=== PATIENT | female | born 1975 | race Caucasian/White ===

== ENCOUNTER 2018-05-19 07:05 | Day surgery (SDC) | payer OTHER | END 2018-05-19 11:45 | disposition home or self-care (01) | LOC: AMB-ENDOS 07:05 | DX: K64.8 Other hemorrhoids (principal); K59.09 Other constipation; R93.3 Abnormal findings on diagnostic imaging of other parts of digestive tract ==

== ENCOUNTER 2019-03-21 09:45 | Inpatient (IN) | payer OTHER ==
[~2019-03-21] VITALS: Ht 165.1 cm; Wt 65.3 kg
[2019-03-21] MEDS ORDERED: INDERAL LA80 MG PO (16:20)
[2019-03-21] MEDS ORDERED: TRAMADOL HCL50 MG PO (16:21)
[2019-03-21] MEDS ORDERED: PREVACID30 M1 PO (16:21)
[2019-03-21] MEDS ORDERED: SINGULAIR10 MG PO (16:21)
[2019-03-21] MEDS ORDERED: ZANTAC300 MG PO (16:21)
[2019-03-21] MEDS ORDERED: LIBRAX PO (16:21)
[2019-03-21] MEDS ORDERED: MAXIMUM DAILY1 EACH PO (16:23)
[2019-03-30] MEDS ORDERED: CHLORDIAZEPOXI1 EACH (08:02)
[2019-04-01] MEDS ORDERED: POLY119PG PO (09:30)
[2019-04-01] MEDS ORDERED: ULTRACET PO (09:30)
[2019-04-01] MEDS ORDERED: INTESTINEX680 M1 PO (09:30)
[2019-04-01] MEDS ORDERED: LEVSIN/SL0.125 MG SL (09:31)
== END 2019-04-01 12:11 | disposition home or self-care (01) | DRG 336 ==
LOC: ADM 09:45 → EDSTATUS 09:45 → SURH 03-29 09:45 → O/R 03-29 11:50 → SURG 03-29 11:50
PROVIDERS: ADMIT Surgery
PROC: 3E0F7GC Introduction of Other Therapeutic Substance into Respiratory Tract, Via Natural or Artificial Opening (ICD-10-PCS; 2019-03-29)
PROC: 0DN84ZZ Release Small Intestine, Percutaneous Endoscopic Approach (ICD-10-PCS; principal; 2019-03-29 10:30)
DX: K56.51 Intestinal adhesions [bands], with partial obstruction (principal); K50.012 Crohn's disease of small intestine with intestinal obstruction; R93.3 Abnormal findings on diagnostic imaging of other parts of digestive tract; J45.20 Mild intermittent asthma, uncomplicated

== ENCOUNTER 2019-04-04 11:00 | Inpatient (IN) | payer OTHER ==
[~2019-04-04] VITALS: Ht 165.1 cm; Wt 61.2 kg
[~2019-04-04 11:00] MED LIST: CHLORDIAZEPOXI1 EACH; INDERAL LA80 MG PO; INTESTINEX680 M1 PO; LEVSIN/SL0.125 MG SL; LIBRAX PO; MAXIMUM DAILY1 EACH PO; POLY119PG PO; PREVACID30 M1 PO; SINGULAIR10 MG PO; TRAMADOL HCL50 MG PO; ULTRACET PO; ZANTAC300 MG PO
[2019-04-12] MEDS ORDERED: CLONAZEPAM0.5 MG PO (18:48)
[2019-04-12] MEDS ORDERED: ACIDOPHILUS-PE1 EAC2 PO (18:48)
[2019-04-12] MEDS ORDERED: PAROXETINE HCL10 MG PO (18:48)
[2019-04-12] MEDS ORDERED: GAS-X125 MG PO (18:49)
[2019-04-12] MEDS ORDERED: METOCLOPRAMIDE H5 MG PO (18:49)
== END 2019-04-12 19:04 | disposition home or self-care (01) | DRG 389 ==
LOC: ER 11:00 → SURG 18:53 → SURH 04-09 13:09 → SURG 04-09 13:57
PROVIDERS: ADMIT Surgery
DX: K56.51 Intestinal adhesions [bands], with partial obstruction (principal); D62 Acute posthemorrhagic anemia; K52.89 Other specified noninfective gastroenteritis and colitis; K59.09 Other constipation; J45.20 Mild intermittent asthma, uncomplicated; F41.8 Other specified anxiety disorders